=== PATIENT | female | born 1960 | race Caucasian/White ===

== ENCOUNTER 2018-09-19 17:31 | Emergency (ER) | payer MEDICAID ==
[~2018-09-19] VITALS: Ht 167.6 cm; Wt 55.0 kg
--- NOTE | 2018-09-19 17:39 | NUR ---
57 Y/O BIB AMBULANCE WITH C/O N/V ABDOMINAL PAIN. PER REPORT PT IS A PT AT [facility]. PT HAS HAD N/V AND AND ABDOMINAL PAIN WITH NO RELIEF. PT HAS BEEN GIVEN PHENERGAN AND ZOFRAN AT [facility]. PT UNABLE TO KEEP ANY SOLID FOODS DOWN. PT CAN DRINK WATER, BUT ENDS UP VOMITING. PT WITH [facility] EMPLOYEE. PT ALSO STATES "I JUST HAVE SOME ABDOMINAL PAIN AND THROWING UP." PIV ESTABLISHED MUNICIPAL MAINTENANCE WORKER. PT GIVEN 4MG ZOFRAN, 50 MCG FENTANYL, AND 250 mL NS. PT PLACED ON CON TPULSE OX, NIBP
[2018-09-19] MEDS ORDERED: SODIUM CHLORIDE 0.9% 1,000 ML IV ONE (17:50)
[2018-09-19] MEDS ORDERED: MAGNESIUM SULFATE 1 GM, THIAMINE 100 MG, FOLIC ACID 1 MG, MVI ADULT 10 ML in SODIUM CHL... IV ONE (18:00)
[2018-09-19] MEDS ORDERED: SODIUM CHLORIDE FLUSH 10ML SYR IVF ONE (18:00)
[2018-09-19 18:16] LABS: INTERNATIONAL NORMALIZED RATIO 0.99 (0.93-1.1); MEAN CORPUSCULAR HGB CONC 33.4 g/dL (32.4-35.8); MEAN CORPUSCULAR VOLUME 110.7 fL (80-100); MEAN PLATELET VOLUME 9.1 fL (7.4-10.4); PLATELET COUNT 252 x10^3/uL (130-400); PROTHROMBIN TIME 10.4 Seconds (9.6-11.5); RED BLOOD COUNT 3.36 x10^6/uL (3.82-5.3); RED CELL DISTRIBUTION WIDTH 13.8 % (9.6-15.2)
[2018-09-19 18:19] LABS: ALANINE AMINOTRANSFERASE 32 U/L (12-78); ANION GAP 7 mmol/L (5-15); CALCIUM 8.6 mg/dL (8.5-10.1); CHLORIDE 106 mmol/L (98-107)
[2018-09-19 18:22] LABS: ALKALINE PHOSPHATASE 80 U/L (45-117); BILIRUBIN,TOTAL 0.4 mg/dL (0.2-1.0); CREATININE 0.71 mg/dL (0.55-1.02); TOTAL PROTEIN 7.1 g/dL (6.4-8.2)
[2018-09-19 18:34] LABS: BASOPHILS # (AUTO) 0.03 x10^3/uL (0-0.1); BASOPHILS % (AUTO) 1 % (0-1); EOSINOPHILS % (AUTO) 2 % (1-7); LYMPHOCYTES % (AUTO) 32 % (22-44); MD SCAN; MONOCYTES # (AUTO) 0.88 x10^3/uL (0.2-0.8); MONOCYTES % (AUTO) 18 % (2-9); NEUTROPHILS # (AUTO) 2.36 x10^3/uL (1.8-6.8); NEUTROPHILS % (AUTO) 48 % (42-75)
--- NOTE | 2018-09-19 18:34 | NUR ---
PT TO IMAGING
--- NOTE | 2018-09-19 18:39 | NUR ---
PT BACK FROM IMAGING.
[2018-09-19 18:44] LABS: ACETONE, SERUM Small (20mg/dL) mg/dL (Negative)
[2018-09-19] MEDS ORDERED: OMNIPAQUE 350 MG/ML, 100ML BOTTLE ONE (18:47)
[2018-09-19] MEDS ORDERED: MORPHINE SULFATE 4 MG/ML, 1ML IVPush ONE (19:00)
--- NOTE | 2018-09-19 19:03 | NUR ---
bedside report to ZBIGNIEW Lopez
--- NOTE | 2018-09-19 19:03 | NUR ---
late entry for 1814 SPOKE WITH PHARMACY. BANANA BAG READY. WILL SEND TO ER.
[2018-09-19] MEDS ORDERED: MORPHINE SULFATE 4 MG/ML, 1ML ONE (19:17)
--- NOTE | 2018-09-19 19:37 | NUR ---
REPORT FROM ADRIAN COY. PT MEDICATED FOR PAIN. SITTER AT BEDSIDE. CALL LIGHT IN REACH
--- NOTE | 2018-09-19 19:50 | NUR ---
BANANA BAG NOT NEEDED PER MD. PT TO BE DISCHARGED
--- NOTE | 2018-09-19 20:23 | NUR ---
report to [facility]. Pt being discharged back to [facility] to continue detox treatment. pt accompanied by [employer] employee. Pt being taxied over.
[2018-09-19 20:24] VITALS: BP 124/81
== END 2018-09-19 20:27 | disposition short-term general hospital (02) ==
LOC: ED 20:10
DX: R11.2 Nausea with vomiting, unspecified (principal); E86.0 Dehydration; R10.84 Generalized abdominal pain; R19.7 Diarrhea, unspecified
CPT/HCPCS: 36415; 74177; 80053; 82010; 83690; 83735; 85025; 85610; 96361; 96374; 99285; J2270; J7030; Q9967

== ENCOUNTER 2018-09-23 12:05 | Emergency (ER) | payer MEDICAID ==
[~2018-09-23] VITALS: Ht 167.6 cm; Wt 57.0 kg
[2018-09-23] MEDS ORDERED: PLEASE ENTER HEIGHT AND WEIGHT MC SCH (12:20)
--- NOTE | 2018-09-23 12:26 | NUR ---
Patient to bed by ems; placed in gown; attached to monitor; vss. Provider to bedside; physical assessment complete; awaiting orders.
--- NOTE | 2018-09-23 12:27 | NUR ---
Boom Operator to bedside.
[2018-09-23] MEDS ORDERED: IBUPROFEN 200 MG TABLET PO ONE (12:30)
[2018-09-23] MEDS ORDERED: IBUPROFEN 600 MG TABLET ONE (12:49)
[2018-09-23 12:50] LABS: MEAN CORPUSCULAR HEMOGLOBIN 36.6 pg (27.0-34.8); MEAN CORPUSCULAR HGB CONC 32.8 g/dL (32.4-35.8); MEAN CORPUSCULAR VOLUME 111.3 fL (80-100); MEAN PLATELET VOLUME 8.4 fL (7.4-10.4); PLATELET COUNT 446 x10^3/uL (130-400); RED BLOOD COUNT 3.64 x10^6/uL (3.82-5.3); RED CELL DISTRIBUTION WIDTH 13.6 % (9.6-15.2)
--- NOTE | 2018-09-23 12:54 | NUR ---
NSAID pain medication given per mar; patient resting comfortably; awaiting u/s of arm
[2018-09-23 12:58] LABS: ALANINE AMINOTRANSFERASE 32 U/L (12-78); ALBUMIN 2.9 g/dL (3.4-5.0); ANION GAP 8 mmol/L (5-15); CALCIUM 8.8 mg/dL (8.5-10.1); CHLORIDE 105 mmol/L (98-107)
[2018-09-23 13:00] LABS: ALKALINE PHOSPHATASE 76 U/L (45-117); BILIRUBIN,TOTAL 0.4 mg/dL (0.2-1.0); TOTAL PROTEIN 6.9 g/dL (6.4-8.2)
[2018-09-23 13:23] LABS: BASOPHILS # (AUTO) 0.03 x10^3/uL (0-0.1); BASOPHILS % (AUTO) 1 % (0-1); EOSINOPHILS # (AUTO) 0.15 x10^3/uL (0-0.4); EOSINOPHILS % (AUTO) 3 % (1-7); LYMPHOCYTES # (AUTO) 1.71 x10^3/uL (1-3.4); LYMPHOCYTES % (AUTO) 29 % (22-44); MD SCAN; MONOCYTES % (AUTO) 14 % (2-9); NEUTROPHILS # (AUTO) 3.13 x10^3/uL (1.8-6.8); NEUTROPHILS % (AUTO) 54 % (42-75)
--- NOTE | 2018-09-23 14:11 | NUR ---
ultrasound complete; patient reports little relief from pain medication; will inform provider. Patient resting comfortably; vss
[2018-09-23] MEDS ORDERED: APIXABAN 5 MG TABLET PO ONE (14:30)
[2018-09-23] MEDS ORDERED: APIXABAN 5 MG TABLET ONE (14:37)
--- NOTE | 2018-09-23 14:39 | NUR ---
Dr Gallegos to bedside to explain the risks of blood thinners; especially complications with alcohol. patient verbalized understanding. F/u explained; pt continues to complain of pain; awaiting orders
[2018-09-23 14:55] LABS: INTERNATIONAL NORMALIZED RATIO 0.95 (0.93-1.1)
[2018-09-23 15:08] VITALS: BP 130/87
--- NOTE | 2018-09-23 15:09 | NUR ---
Pain med given per md order; will recheck to see how patient tolerates; awaiting further orders.
--- NOTE | 2018-09-23 15:42 | NUR ---
report to RN at [facility]; reveiwed dx and medication and interventions completed at ED; received update that [facility] will accept patient care.
== END 2018-09-23 15:51 ==
LOC: ED 14:00
DX: I82.B12 Acute embolism and thrombosis of left subclavian vein (principal); F41.1 Generalized anxiety disorder
CPT/HCPCS: 36415; 80053; 83605; 84145; 85025; 85610; 85730; 99285